=== PATIENT | female | born 1965 | race Caucasian/White ===

== ENCOUNTER → 2016-10-05 | Outpatient (CLI) | payer BC ==
[~2016-10-05] MED LIST: AMITRYPTYLINE PO; EXCEDRIN BACK1 EACH PO; MELATONIN10 M1 PO; PROPRANOLOL HCL10 MG PO; PROTONIX PO; ZYRTEC10 M2 PO
--- NOTE | ~2016-10-05 | BD1 ---
[facility] A Service of [facility] & [facility] RADIOLOGY TEXT RESULTS PATIENT: MARINE CHRISTIANSEN LOCATION: SRA : 61 UNIT #: [id number] AGE: [address]: Alma Flor MD SEX: F ORDER DR: [id number] [address] [address] [id number] O MR#: [id number] Acc #: [id number] NAME: MARINE CHRISTIANSEN. : 1965 SEX: F STUDY DATE/TIME: 10/05/2016 15:47 UNIT: [facility] ROOM: STUDY DESCRIPTION: BD Dexa Bone Dens 1+ Site Attending Physician: Alma Flor M.D. Referring Physician: Alma Flor M.D. Ordering Physician: Alma Flor M.D. Primary Care Physician: Alma Flor M.D. MEDICAL IMAGING REPORT This report is preliminary unless electronic signature is present. EXAM DXA scan, 10/05/2016 HISTORY Status post menopause with no hormone replacement therapy. Osteopenia. Hypertension with blood pressure medication for 2 years. FINDINGS Bone mineral density in the lumbar spine, from L1 through L4, was 0.979 g/cm2, which is 1.7 standard deviations below the mean when compared to the young adult reference population, which is characteristic of osteopenia. This is 1.5 standard deviations below the mean when compared to the age-match population. Bone mineral density in the left femoral neck was 0.855 g/cm2, which is 1.3 standard deviations below the mean when compared to the young adult reference population, which is characteristic of osteopenia. This is 0.7 standard deviations below the mean when compared to the age-match population. Bone mineral density in the right femoral neck was 0.827 g/cm2, which is 1.5 standard deviations below the mean when compared to the young adult reference population, which is characteristic of osteopenia. This is 0.9 standard deviations below the mean when compared to the age-match population. IMPRESSION Bone mineral density in the lumbar spine and the hips bilaterally characteristic of osteopenia. Dictated by... Saji Pacheco M.D. [facility] A Service of [facility] RADIOLOGY TEXT RESULTS PATIENT: MARINE CHRISTIANSEN LOCATION: [facility] : 61 UNIT #: [id number] AGE: [address]: Alma Flor MD SEX: F ORDER DR: THIS IS AN ELECTRONICALLY VERIFIED REPORT Saji Pacheco M.D. at 10/07/2016 11:02 AM RAEGAN/gennaro TD: 10/05/2016 21:04 JOB #: [id number] MEDICAL IMAGING REPORT
--- NOTE | ~2016-10-05 | MY11 ---
[facility] A Service [facility] RADIOLOGY TEXT RESULTS PATIENT: MARINE CHRISTIANSEN LOCATION: [facility] : 61 UNIT #: [id number] AGE: [address]: lAma Flor MD SEX: F ORDER DR: [id number] [place] [id number] P MR#: [id number] Acc #: [id number] NAME: MARINE CHRISTIANSEN : 1965 SEX: F STUDY DATE/TIME: 10/05/2016 15:51 UNIT: [facility] ROOM: STUDY DESCRIPTION: MY Mammogram Screening Dig Lev Attending Physician: Alma Flor M.D. Referring Physician: Alma Flor M.D. Ordering Physician: Alma Flor M.D. Primary Care Physician: Alma Flor M.D. MEDICAL IMAGING REPORT This report is preliminary unless electronic signature is present. EXAM Screening mammogram 10/05 INDICATIONS 51 year old with no personal or family history of breast cancer. No current complaints. TECHNIQUE Routine digital screening views of both breasts were obtained. Study reviewed with a FDA-approved CAD device. COMPARISON STUDIES Comparison made with 06/24/2015, 07/25/2012. FINDINGS Breast parenchyma shows scattered fibroglandular densities. No new masses or suspicious microcalcifications are seen. IMPRESSION Negative mammogram. Routine screen in 1 year recommended. BIRADS: 1 Negative. Patients over the age of 40 are entered into a reminder system with target due date for the next mammogram. A result letter will also be sent to the patient. Dictated by... Tobi Hicks Jr., M.D. [facility] A Service [facility] RADIOLOGY TEXT RESULTS PATIENT: MARINE CHRISTIANSEN LOCATION: [facility] : 61 UNIT #: [id number] AGE: [address]: Alma Flor MD SEX: F ORDER DR: THIS IS AN ELECTRONICALLY VERIFIED REPORT Tobi Hicks Jr., M.D. at 10/06/2016 6:32 AM CHRIS/[place] TD: 10/05/2016 20:04 JOB #: [id number] MEDICAL IMAGING REPORT
== END | disposition home or self-care (01) ==
LOC: SRAD 07:15
DX: Z12.31 Encounter for screening mammogram for malignant neoplasm of breast (principal); Z13.820 Encounter for screening for osteoporosis; Z78.0 Asymptomatic menopausal state
CPT/HCPCS: 77080; G0202